=== PATIENT | male | born 1980 | race Caucasian/White ===

== ENCOUNTER 2024-10-13 14:11 | Emergency (ER) | payer SELFPAY ==
[~2024-10-13] VITALS: Ht 177.8 cm; Wt 93.0 kg
[2024-10-13 14:19] VITALS: O2SAT 100
[2024-10-13 14:36] VITALS: TEMP 97.8; O2SAT 98
[2024-10-13 17:55] VITALS: BP 134/52; PULSE 93; RESP 16
[2024-10-13] MEDS: KETOROLAC 15MG/ML VIAL IM ONE (17:55)
[2024-10-13] MEDS ORDERED: NAPR-1176 MT (18:14)
[2024-10-13] MEDS ORDERED: LIDO700A15 TP (18:14)
== END 2024-10-13 19:53 | disposition home or self-care (01) ==
LOC: ER 14:11
DX: M25.532 Pain in left wrist (principal); R07.81 Pleurodynia; Z79.1 Long term (current) use of non-steroidal anti-inflammatories (NSAID)
CPT/HCPCS: 71101; 73120; 29125; 96372; 99284; J1885; Z7610

== ENCOUNTER 2025-10-05 11:14 | Inpatient (IN) | payer SELFPAY ==
[~2025-10-05] VITALS: Ht 177.8 cm; Wt 98.1 kg
[~2025-10-05 11:14] MED LIST: LIDO-53 TP; NAPR-1176 MT
[2025-10-05 11:15] VITALS: O2SAT 98
[2025-10-05] MEDS: MORPHINE SULFATE 4 MG/ML INJ (FOR IV/IM USE) IV ONE (11:50)
[2025-10-05 12:09] LABS: BASOPHILS % 0.3 % (0.0-2.0); EOSINOPHILS % 1.5 % (0.0-5.0); HEMATOCRIT. 50.1 % (42.0-52.0); HEMOGLOBIN. 16.4 g/dL (14.0-18.0); LYMPHOCYTES % 22.3 % (20.0-50.0); MEAN PLATELET VOLUME 7.7 fl (7.4-10.4); MONOCYTES % 6.9 % (2.0-8.0); NEUTROPHILS % 69.0 % (40.0-76.0); PLATELET 268 x1000/uL (130-400); RED BLOOD CELL COUNT 5.97 mill/uL (4.7-6.1); RED CELL DISTRIBUTION WIDTH 13.6 % (11.6-14.6)
[2025-10-05 12:24] LABS: CREATININE 0.9 mg/dL (0.6-1.3); UREA NITROGEN BLOOD 7 mg/dL (9-23)
[2025-10-05 12:26] LABS: TROPONIN I HIGH SENSITIVITY < 4 ng/L (3.0-53)
[2025-10-05] MEDS ORDERED: ONDANSETRON HCL 4MG/2ML INJ IV PRN (12:45)
[2025-10-05] MEDS ORDERED: KETOROLAC 30MG/ML VIAL IV PRN (12:45)
[2025-10-05] MEDS ORDERED: CLONIDINE 0.1MG TABLET PO PRN (12:45)
[2025-10-05] MEDS ORDERED: MORPHINE SULFATE 2 MG/ML INJ (NOT FOR IM USE) IV PRN (12:45)
[2025-10-05] MEDS ORDERED: HYDRALAZINE 20MG/ML VIAL IV PRN (12:45)
[2025-10-05] MEDS ORDERED: ACETAMINOPHEN 325MG TABLET PO PRN ×2 (12:45)
[2025-10-05] MEDS ORDERED: DIPHENHYDRAMINE 50MG/ML VIAL IV PRN (12:45)
[2025-10-05] MEDS ORDERED: GUAIFENESIN 200MG/10ML SUGAR FREE UDC PO PRN (12:45)
[2025-10-05] MEDS ORDERED: NALOXONE HCL 0.4MG/ML VIAL IV PRN (13:00)
[2025-10-05] MEDS: ENOXAPARIN 40MG/0.4ML SYR SUBCUT SCH (14:01)
[2025-10-05] MEDS: AMLODIPINE 10MG TABLET PO SCH (14:01)
[2025-10-05 14:50] VITALS: BP 130/92; PULSE 79; RESP 18; TEMP 36.7; TEMP 36.7516; O2SAT 96
[2025-10-05 16:00] VITALS: BP 118/77; PULSE 75; RESP 20; TEMP 37.1; O2SAT 98
[2025-10-05] MEDS: SODIUM CHLORIDE 0.9% 3ML FLUSH IVF SCH (16:47)
[2025-10-05] MEDS ORDERED: GLUC100017 PO (17:14)
[2025-10-05 18:26] LABS: *AMPHETAMINES SCREEN URINE NEGATIVE (NEGATIVE); *BARBITURATES SCREEN URINE NEGATIVE (NEGATIVE); *BENZODIAZEPINES SCREEN URINE NEGATIVE (NEGATIVE); *COCAINE SCREEN URINE PRESUMPTIVE POSITIVE (NEGATIVE)
[2025-10-05 18:27] LABS: CANNABINOID URINE SCREEN NEGATIVE (NEGATIVE); ECSTASY MDMA SCREEN URINE NEGATIVE (NEGATIVE); METHADONE URINE SCREEN NEGATIVE (NEGATIVE); OPIATES URINE SCREEN PRESUMPTIVE POSITIVE (NEGATIVE); PHENCYCLIDINE URINE SCREEN NEGATIVE (NEGATIVE)
[2025-10-05 19:00] LABS: TROPONIN I HIGH SENSITIVITY < 4 ng/L (3.0-53)
[2025-10-05 20:00] VITALS: BP 111/82; PULSE 96; RESP 19; TEMP 36.6; O2SAT 96
[2025-10-05] MEDS ORDERED: ZOLPIDEM TARTRATE 5MG TABLET PO PRN (21:00)
[2025-10-05 22:43] LABS: TROPONIN I HIGH SENSITIVITY < 4 ng/L (3.0-53)
[2025-10-06] VITALS: BP 112/69; PULSE 98; RESP 19; TEMP 36.6; O2SAT 98
[2025-10-06 01:17] LABS: TROPONIN I HIGH SENSITIVITY < 4 ng/L (3.0-53)
[2025-10-06 04:00] VITALS: BP 109/64; PULSE 73; PULSE 98; RESP 19; TEMP 36.4; O2SAT 98
[2025-10-06 08:00] VITALS: BP 117/84; PULSE 98; RESP 17; TEMP 36.4; O2SAT 94
[2025-10-06 11:36] VITALS: BP 104/67; PULSE 64; RESP 17; TEMP 36.4; O2SAT 97
[2025-10-06 16:00] VITALS: BP 123/86; PULSE 75; RESP 18; TEMP 36.4; O2SAT 96
[2025-10-06 16:57] VITALS: BP 123/86; PULSE 75; RESP 18; TEMP 97.8
== END 2025-10-06 17:45 | disposition home or self-care (01) | DRG 203 ==
LOC: ER 11:14 → 7WST 12:27 → EDBEDREQTM 12:46 → EDBEDREQ 12:46
PROVIDERS: ADMIT Internal Medicine; ATTEND Internal Medicine
DX: R07.89 Other chest pain (principal); F14.90 Cocaine use, unspecified, uncomplicated; I10 Essential (primary) hypertension; K21.9 Gastro-esophageal reflux disease without esophagitis
CPT/HCPCS: 36415; 71045; 80048; 80305; 84484; 85025; 93005; 99285; J1650; J2270